=== PATIENT | female | born 2000 | race African-American/Black ===

== ENCOUNTER 2021-01-18 16:33 | Emergency (ER) | payer OTHER ==
[~2021-01-18] VITALS: Ht 167 cm; Wt 60.0 kg
--- NOTE | 2021-01-18 16:52 | ED General ---
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 Patient's family coach and states patient is normally shy and reserved but has been lately acting elated, with at times grandiose and inappropriate relationship gestures. Patient had also reportedly called her mother and spoke with the father and stated that she had thoughts of killing herself but she denies thoughts or attempt at this time. She denies HI, paranoia or delusions and hallucinations. She has history of previous suicide attempt. She is not currently taking any medications but states she self medicates with marijuana which she has used today. She denies medical symptoms or complaints at this time. Timing/Duration: 1-2 Days Severity: Moderate Modifying Factors: improves with Other Associated Systoms: Other Allergies and Home Medications Allergies Coded Allergies: No Known Drug Allergies (Unverified , 01/18/21) Patient Home Medication List Home Medication List Reviewed: Yes Review of Systems Review of Systems Constitutional: see HPI EENTM: see HPI Respiratory: see HPI Cardiovascular: see HPI Gastrointestinal: see HPI Genitourinary: see HPI Musculoskeletal: see HPI Skin: see HPI Psychiatric/Neurological: See HPI Hematologic/Lymphatic: See HPI Immunological/Allergic: see HPI All Other Systems Reviewed Negative Unless Noted: Yes Past Fcjuddp-Imamti-Sufhoz Hx Patient Social History Tobacco Use?: Yes Physical Exam Vital Signs Vital Signs - First Documented 01/18/21 16:53 Temp 36.1 Pulse 86 Resp 16 B/P (MAP) 135/85 (102) Pulse Ox 98 O2 Delivery Room Air Capillary Refill : Height, Weight, BMI Height: '" Weight: lbs. oz. kg; BMI Method: General Appearance: Anxious Eyes: Bilateral Eye Normal Inspection, Bilateral Eye PERRL, Bilateral Eye EOMI HEENT: PERRL/EOMI, Moist Mucous Membranes Respiratory: Lungs Clear Cardiovascular: Regular Rate, Rhythm Gastrointestinal: Non Tender, Soft Back: No CVA Tenderness Extremity: Non Tender, No Calf Tenderness Neurologic/Psychiatric: Alert, Oriented x3 Skin: Normal Color, Warm/Dry Focused Exam Sepsis Stage: Ruled Out Progress/Results/Core Measures Suspected Sepsis SIRS Temperature: Pulse: Respiratory Rate: Laboratory Tests 01/18/21 17:50: White Blood Count 7.5 Blood Pressure / Mean: Laboratory Tests 01/18/21 17:50: Creatinine 0.74, Platelet Count 301, Total Bilirubin 0.9 Results/Orders Lab Results Laboratory Tests Test 01/18/21 16:45 01/18/21 17:50 01/18/21 17:55 01/18/21 22:15 Range/Units Urine Color DARK YELLOW Urine Clarity SLIGHTLY CLOUDY Urine pH 5.5 5-9 Urine Specific [place] >=1.030 1.016-1.022 Urine Protein 1+ H NEGATIVE Urine Glucose (UA) NEGATIVE NEGATIVE Urine Ketones 1+ H NEGATIVE Urine Nitrite NEGATIVE NEGATIVE Urine Bilirubin 1+ H NEGATIVE Urine Urobilinogen 0.2 < = 1.0 MG/DL Urine Leukocyte Esterase NEGATIVE NEGATIVE Urine RBC (Auto) NEGATIVE NEGATIVE Urine RBC 5-10 H /HPF Urine WBC 5-10 H /HPF Urine Squamous Epithelial Cells 5-10 /HPF Urine Crystals NONE /LPF Urine Bacteria MODERATE H /HPF Urine Casts NONE /LPF Urine Mucus LARGE H /LPF Urine Culture Indicated YES Urine Opiates Screen NEGATIVE NEGATIVE Urine Oxycodone Screen NEGATIVE NEGATIVE Urine Methadone Screen NEGATIVE NEGATIVE Urine Propoxyphene Screen NEGATIVE NEGATIVE Urine Barbiturates Screen NEGATIVE NEGATIVE Ur Tricyclic Antidepressants Screen NEGATIVE NEGATIVE Urine Phencyclidine Screen NEGATIVE NEGATIVE Urine Amphetamines Screen NEGATIVE NEGATIVE Urine Methamphetamines Screen NEGATIVE NEGATIVE Urine Benzodiazepines Screen NEGATIVE NEGATIVE Urine Cocaine Screen NEGATIVE NEGATIVE Urine Cannabinoids Screen POSITIVE H NEGATIVE White Blood Count 7.5 4.3-11.0 10^3/uL Red Blood Count 5.44 H 3.80-5.11 10^6/uL Hemoglobin 14.4 11.5-16.0 g/dL Hematocrit 44 35-52 % Mean Corpuscular Volume 81 80-99 fL Mean Corpuscular Hemoglobin 26 25-34 pg Mean Corpuscular Hemoglobin Concent 33 32-36 g/dL Red Cell Distribution Width 13.8 10.0-14.5 % Platelet Count 301 130-400 10^3/uL Mean Platelet Volume 8.9 L 9.0-12.2 fL Immature Granulocyte % (Auto) 0 % Neutrophils (%) (Auto) 66 42-75 % Lymphocytes (%) (Auto) 25 12-44 % Monocytes (%) (Auto) 7 0-12 % Eosinophils (%) (Auto) 1 0-10 % Basophils (%) (Auto) 1 0-10 % Neutrophils # (Auto) 5.0 1.8-7.8 X 10^3 Lymphocytes # (Auto) 1.9 1.0-4.0 X 10^3 Monocytes # (Auto) 0.5 0.0-1.0 X 10^3 Eosinophils # (Auto) 0.1 0.0-0.3 10^3/uL Basophils # (Auto) 0.0 0.0-0.1 10^3/uL Immature Granulocyte # (Auto) 0.0 0.0-0.1 10^3/uL Sodium Level 140 135-145 MMOL/L Potassium Level 3.7 3.6-5.0 MMOL/L Chloride Level 106 98-107 MMOL/L Carbon Dioxide Level 21 21-32 MMOL/L Anion Gap 13 5-14 MMOL/L Blood Urea Nitrogen 16 7-18 MG/DL Creatinine 0.74 0.60-1.30 MG/DL Estimat Glomerular Filtration Rate 123 BUN/Creatinine Ratio 22 Glucose Level 130 H 70-105 MG/DL Calcium Level 9.8 8.5-10.1 MG/DL Corrected Calcium 8.5-10.1 MG/DL Total Bilirubin 0.9 0.1-1.0 MG/DL Aspartate Amino Transf (AST/SGOT) 22 5-34 U/L Alanine Aminotransferase (ALT/SGPT) 20 0-55 U/L Alkaline Phosphatase 62 40-136 U/L Total Protein 8.7 H 6.4-8.2 GM/DL Albumin 5.0 H 3.2-4.5 GM/DL Serum Alcohol < 10 <10 MG/DL Glucometer 126 H 70-110 MG/DL SARS-CoV-2 RNA (RT-PCR) Not Detected Not Detecte My Orders Orders - TRUDY MCKEON DO Drug Screen Stat (Urine) (01/18/21 16:46) Ua Culture If Indicated (01/18/21 16:46) Urine Culture (01/18/21 16:45) Cbc With Automated Diff (01/18/21 17:43) Comprehensive Metabolic Panel (01/18/21 17:43) Alcohol (01/18/21 17:43) Urine Bedside (01/18/21 17:43) Ekg Tracing (01/18/21 17:52) Covid 19 Inhouse Test (01/18/21 22:15) Olanzapine Orally Dissolve Tab (Zyprexa (01/19/21 01:30) Olanzapine Orally Dissolve Tab (Zyprexa (01/19/21 02:03) Medications Given in ED Current Medications Medications Dose Ordered Sig/Travon Route Start Time Stop Time Status Last Admin Dose Admin Olanzapine 5 mg ONCE ONCE PO 01/19/21 01:30 01/19/21 01:31 DC 01/19/21 01:30 5 MG Olanzapine 5 mg STK-MED ONCE .ROUTE 01/19/21 02:03 01/19/21 02:05 DC 01/19/21 02:00 5 MG Vital Signs/I&O 01/18/21 16:53 Temp 36.1 Pulse 86 Resp 16 B/P (MAP) 135/85 (102) Pulse Ox 98 O2 Delivery Room Air Capillary Refill : Departure Communication (Admissions) EKG: Normal sinus rhythm. Lab reviewed. Patient medically stable. Mental mental health screening exam performed. Recommendations are for voluntary placement and involuntary placement if patient changes her mind. Patient with persistent flight of ideas wanting to stay in her room. 10 mg of Zydis given to facilitate patient care comfort. Patient accepted by Dr. Day to [facility] in [place] Impression Primary Impression: Acute psychosis Disposition: XFER SHT-TRM HOSP Condition: Stable Transfer Transfer Reason: Exceeds level of care Time Spoke to Accepting Phy: 05:[address] Shay Krishnan spends in [place] Transfer Time: 05:15 Method of Transfer: EMS TRUDY MCKEON DO Jan 18, 2021 16:52
[2021-01-18 16:56] LABS: CLARITY,URINE SLIGHTLY CLOUDY; COLOR,URINE DARK YELLOW; GLUCOSE, URINE (UA) NEGATIVE (NEGATIVE); KETONES,URINE 1+ (NEGATIVE); PH,URINE 5.5 (5-9); PROTEIN,URINE 1+ (NEGATIVE)
[2021-01-18 16:57] LABS: BACTERIA,URINE MODERATE /HPF; BILIRUBIN,URINE 1+ (NEGATIVE); LEUKOCYTE ESTERASE ,URINE NEGATIVE (NEGATIVE); NITRITE,URINE NEGATIVE (NEGATIVE)
[2021-01-18 17:02] LABS: AMPHETAMINE SCREEN, URINE NEGATIVE (NEGATIVE); BARBITURATE SCREEN URINE NEGATIVE (NEGATIVE); BENZODIAZEPINES SCREEN URINE NEGATIVE (NEGATIVE); CANNABINOID SCREEN, URINE POSITIVE (NEGATIVE); COCAINE SCREEN URINE NEGATIVE (NEGATIVE); METHADONE STAT NEGATIVE (NEGATIVE); METHAMPHETAMINE SCREEN URINE S NEGATIVE (NEGATIVE); OPIATE SCREEN URINE NEGATIVE (NEGATIVE); OXYCODONE STAT NEGATIVE (NEGATIVE); PROPOXYPHENE STAT NEGATIVE (NEGATIVE); TRICYCLIC ANTIDEPRESSANTS SCRE NEGATIVE (NEGATIVE)
[2021-01-18 17:54] LABS: BASOPHILS % (AUTO) 1 % (0-10); EOSINOPHILS # (AUTO) 0.1 10^3/uL (0.0-0.3); EOSINOPHILS % (AUTO) 1 % (0-10); HEMATOCRIT 44 % (35-52); HEMOGLOBIN 14.4 g/dL (11.5-16.0); LYMPHOCYTES # (AUTO) 1.9 X 10^3 (1.0-4.0); LYMPHOCYTES % (AUTO) 25 % (12-44); MEAN CORPUSCULAR HEMOGLOBIN 26 pg (25-34); MEAN CORPUSCULAR HGB CONC 33 g/dL (32-36); MEAN CORPUSCULAR VOLUME 81 fL (80-99); MEAN PLATELET VOLUME 8.9 fL (9.0-12.2); MONOCYTES # (AUTO) 0.5 X 10^3 (0.0-1.0); MONOCYTES % (AUTO) 7 % (0-12); NEUTROPHILS % (AUTO) 66 % (42-75); PLATELET COUNT 301 10^3/uL (130-400); WHITE BLOOD COUNT 7.5 10^3/uL (4.3-11.0)
[2021-01-18 18:16] LABS: ALANINE AMINOTRANSFERASE 20 U/L (0-55); ALKALINE PHOSPHATASE 62 U/L (40-136); BILIRUBIN,TOTAL 0.9 MG/DL (0.1-1.0); BUN/CREATININE RATIO 22; CALCIUM 9.8 MG/DL (8.5-10.1); CARBON DIOXIDE 21 MMOL/L (21-32); CHLORIDE 106 MMOL/L (98-107); CREATININE SERUM 0.74 MG/DL (0.60-1.30); GFR ESTIMATED 123; GLUCOSE 130 MG/DL (70-105); POTASSIUM 3.7 MMOL/L (3.6-5.0); SODIUM 140 MMOL/L (135-145); TOTAL PROTEIN 8.7 GM/DL (6.4-8.2)
[2021-01-19] MEDS ORDERED: OLANZapine 5 MG ODT (ZyPREXA ZYDIS) PO ONE (01:30)
[2021-01-19] MEDS ORDERED: OLANZapine 5 MG ODT (ZyPREXA ZYDIS) ONE (02:03)
[2021-01-19 05:27] VITALS: BP 117/78
== END 2021-01-19 05:29 | disposition short-term general hospital (02) ==
LOC: ER FS 16:35
DX: F23 Brief psychotic disorder (principal); Z72.0 Tobacco use; Z20.822 Contact with and (suspected) exposure to COVID-19
CPT/HCPCS: 36415; 80053; 80306; 81000; 82947; 84703; 85025; 87077; 87088; 87636; 93005; 99283; G0480; 80320